=== PATIENT | male | born 1985 | race Caucasian/White ===

== ENCOUNTER 2020-12-02 15:16 | Emergency (ER) | payer OTHER ==
[~2020-12-02] VITALS: Ht 190.5 cm; Wt 86.4 kg
[2020-12-02 16:48] LABS: BASOPHILS % (AUTO) 0.5 % (0-1); EOSINOPHILS # (AUTO) 0.2 X10'3 (0-0.9); HEMATOCRIT 38.7 % (42.0-52.0); HEMOGLOBIN 12.8 g/dl (14.0-17.9); LYMPHOCYTES # (AUTO) 1.9 X10'3 (1.1-4.8); LYMPHOCYTES % (AUTO) 23.5 % (21-51); MEAN CORPUSCULAR HEMOGLOBIN 28.7 PG (27.0-31.0); MEAN CORPUSCULAR HGB CONC 33.1 g/dL (33.0-36.5); MEAN CORPUSCULAR VOLUME 86.7 FL (78-98); MEAN PLATELET VOLUME 10.2 FL (7.4-10.4); MONOCYTES # (AUTO) 0.5 X10'3 (0-0.9); NEUTROPHILS # (AUTO) 5.4 X10'3 (1.8-7.7); PLATELET COUNT 198 X10'3 (140-440); RED BLOOD COUNT 4.47 X10'6 (4.70-6.10); RED CELL DISTRIBUTION WIDTH 13.4 % (11.5-14.5)
[2020-12-02] MEDS ORDERED: enoxaparin 100mg/ml syringe SUBCUT ONE ×2 (16:50→16:52)
[2020-12-02 16:58] LABS: PARTIAL THROMBOPLASTIN TIME 30 SECONDS (22-32)
[2020-12-02] MEDS ORDERED: iohexol 350MG/ML 100ml bottle IV ONE (17:07)
[2020-12-02 17:19] LABS: ALANINE AMINOTRANSFERASE 31 U/L (12-78); ALBUMIN 3.8 G/DL (3.4-5.0); ALBUMIN/GLOBULIN RATIO 1.1 (1.1-1.5); ALKALINE PHOSPHATASE 141 IU/L (46-116); ANION GAP 7 (8-16); ASPARTATE AMINO TRANSFERASE 22 U/L (10-37); BILIRUBIN,TOTAL 0.3 MG/DL (0.1-1.0); BLOOD UREA NITROGEN 13 MG/DL (7-18); BUN/CREATININE RATIO 12.4 (5.4-32.0); CALCIUM 8.8 MG/DL (8.5-10.1); CHLORIDE 103 MMOL/L (99-107); CREATININE 1.05 MG/DL (0.60-1.10); GLUCOSE 77 MG/DL (70-104); POTASSIUM 3.9 MMOL/L (3.5-5.1); SODIUM 142 MMOL/L (135-145); TOTAL CARBON DIOXIDE 32.3 MMOL/L (24-32); TOTAL PROTEIN 7.3 G/DL (6.4-8.2); eGFR 81 ML/MIN
[2020-12-02 18:38] VITALS: BP 131/87
[2020-12-02] MEDS ORDERED: APIX5TAB3 PO (18:57)
== END 2020-12-02 19:28 | disposition home or self-care (01) ==
LOC: ER 15:18
DX: I82.401 Acute embolism and thrombosis of unspecified deep veins of right lower extremity (principal); M79.89 Other specified soft tissue disorders; F17.200 Nicotine dependence, unspecified, uncomplicated; F19.90 Other psychoactive substance use, unspecified, uncomplicated
CPT/HCPCS: 36415; 71275; 76937; 80053; 83880; 85025; 85610; 85730; 93971; 96372; 99285; Q9967; J1650